=== PATIENT | female | born 1975 | race Two or more races ===

== ENCOUNTER 2016-08-04 18:45 | Emergency (ER) | payer BC ==
[~2016-08-04] VITALS: Ht 154.9 cm; Wt 95.6 kg
[~2016-08-04 18:45] MED LIST: no home meds
[2016-08-04 19:58] LABS: HEMATOCRIT 38.2 % (36.0-46.0); MCH 27.6 PG (29.0-34.0); MCHC 32.7 G/DL (30.0-36.0); MCV 84.3 FL (83-99); MEAN PLAT.VOLUME 9.8 uM^3 (9.5-12.4); PLATELET COUNT 303 K/uL (156-360); RBC DIS.WIDTH-CV 15.2 % (11.8-14.6); RBC DIS.WIDTH-SD 46.7 % (39-53); RED BLOOD COUNT 4.53 M/uL (3.80-5.20); WHITE BLOOD COUNT 10.2 K/uL (4.1-10.2)
[2016-08-04 20:12] LABS: CHLORIDE 102 mEq/L (99-109); POTASSIUM 4.7 mEq/L (3.7-5.4); SODIUM 137 mEq/L (136-147)
[2016-08-04 20:14] LABS: GLUCOSE 104 mg/dL (70-99)
[2016-08-04 20:15] LABS: ANION GAP 12 MEQ/L (2-14)
[2016-08-04 20:17] LABS: GFR ESTIMATE (CALCULATED) > 59 mL/min/
[2016-08-04 20:18] LABS: UREA NITROGEN (BUN) 12 mg/dL (9-23)
[2016-08-04] MEDS ORDERED: ROBITUSSIN DM118 ML PO (22:21)
[2016-08-04] MEDS ORDERED: FLEXERIL10 MG PO (22:21)
[2016-08-04 22:23] LABS: INFLUENZA A VIRAL ANTIGEN POSITIVE; INFLUENZA B VIRAL ANTIGEN NEGATIVE
[2016-08-04 23:00] VITALS: BP 97/55
== END 2016-08-04 23:03 | disposition home or self-care (01) ==
LOC: RME 18:45 → EME 18:45 → RME 23:03
PROVIDERS: Nurse Practitioner Family
DX: J06.9 Acute upper respiratory infection, unspecified (principal); M54.41 Lumbago with sciatica, right side; Z88.4 Allergy status to anesthetic agent; Z88.6 Allergy status to analgesic agent
CPT/HCPCS: 71020; 80048; 81003; 85027; 87502; 99281; 99283